=== PATIENT | male | born 1985 | race Caucasian/White ===

== ENCOUNTER → 2022-03-27 10:09 | Outpatient (BNVA) | payer OTHER, SELFPAY | PROVIDERS: Visit Provider Emergency Medicine | DX: R06.2 Wheezing (principal); R06.02 Shortness of breath; R68.89 Other general symptoms and signs | CPT/HCPCS: 71046; 87400 ==

== ENCOUNTER → 2022-07-16 09:15 | Outpatient (BNVA) | payer OTHER, SELFPAY | PROVIDERS: Visit Provider Nurse Practitioner Family | DX: S62.394A Other fracture of fourth metacarpal bone, right hand, initial encounter for closed fracture (principal); S62.396A Other fracture of fifth metacarpal bone, right hand, initial encounter for closed fracture; X58.XXXA Exposure to other specified factors, initial encounter | CPT/HCPCS: 73130 ==